=== PATIENT | male | born 1955 | race Caucasian/White ===

== ENCOUNTER 2023-02-06 19:34 | Outpatient (REF) | payer OTHER, SELFPAY ==
[2023-02-06 15:23] LABS: ALT 15 U/L (16-63); AST 20 U/L (15-37); Albumin 3.6 g/dL (3.4-5.0); Alkaline Phosphatase 99 U/L (46-116); Bilirubin, Direct 0.1 mg/dL (0.0-0.2); Bilirubin, Total 0.3 mg/dL (0.2-1.0); Total Protein 7.1 g/dL (6.4-8.2)
[2023-02-15 09:59] LABS: Misc Referral (UVM) See Comments
== END 2023-02-06 19:35 | disposition home or self-care (01) ==
LOC: NCHCN 19:34
PROVIDERS: PCP Nurse Practitioner Family; Visit Provider Nurse Practitioner Family
DX: F31.9 Bipolar disorder, unspecified (principal); Z51.81 Encounter for therapeutic drug level monitoring; Z79.899 Other long term (current) drug therapy
CPT/HCPCS: 80076; 80164

== ENCOUNTER 2023-03-06 15:46 | Outpatient (REF) | payer OTHER, SELFPAY ==
[2023-03-06 12:40] LABS: ALT 22 U/L (16-63); AST 15 U/L (15-37); Albumin 3.6 g/dL (3.4-5.0); Alkaline Phosphatase 94 U/L (46-116); BUN 29 mg/dL (7-18); Bilirubin, Total 0.4 mg/dL (0.2-1.0); Calcium 9.6 mg/dL (8.5-10.1); Calculated LDL 152 mg/dL (<100); Chloride 106 mmol/L (98-107); Cholesterol 230 mg/dL (<200); Estimated GFR 35.68 (mL/min/1.73m2); Glucose 88 mg/dL (74-106); HDL Cholesterol 43 mg/dL (40-60); Potassium 5.5 mmol/L (3.5-5.1); Sodium 140 mmol/L (136-145); Total Protein 7.3 g/dL (6.4-8.2); Triglyceride 175 mg/dL (<150)
== END 2023-03-06 15:47 | disposition home or self-care (01) ==
LOC: NCHCN 15:46
PROVIDERS: PCP Nurse Practitioner Family; Visit Provider Nurse Practitioner Family
DX: Z51.81 Encounter for therapeutic drug level monitoring (principal)
CPT/HCPCS: 80053; 80061

== ENCOUNTER 2023-03-11 07:39 | Outpatient (REF) | payer OTHER, SELFPAY ==
[2023-03-11 08:39] LABS: BUN 32 mg/dL (7-18); CREATININE 2.1 mg/dL (0.70-1.30); Chloride 108 mmol/L (98-107); Estimated GFR 33.66 (mL/min/1.73m2); Glucose 95 mg/dL (74-106); Sodium 141 mmol/L (136-145)
== END 2023-03-11 07:40 | disposition home or self-care (01) ==
LOC: LBN 07:39
PROVIDERS: PCP Nurse Practitioner Family; Visit Provider Nurse Practitioner Family
DX: E87.5 Hyperkalemia (principal)
CPT/HCPCS: 80048

== ENCOUNTER 2023-04-11 12:31 | Outpatient (REF) | payer OTHER, SELFPAY ==
[2023-04-11 13:38] LABS: Bilirubin Negative (Negative); Blood Negative (Negative); Clarity Clear (Clear); Glucose Negative (Negative); Ketones Negative (Negative); Leukocyte Esterase Negative (Negative); Nitrite Negative (Negative); Urobilinogen 0.2 mg/dL (Up to 0.2); pH 5.5 (5-8)
== END 2023-04-11 12:32 | disposition home or self-care (01) ==
LOC: NCHCN 12:31
PROVIDERS: PCP Nurse Practitioner Family; Visit Provider Nurse Practitioner Family
DX: N39.0 Urinary tract infection, site not specified (principal)
CPT/HCPCS: 81003

== ENCOUNTER 2023-04-16 18:11 | Outpatient (REF) | payer OTHER, SELFPAY ==
[2023-04-16 17:34] LABS: Influenza A PCR Negative (Negative); Influenza B PCR Negative (Negative); RSV PCR Negative (Negative)
[2023-04-16 17:35] LABS: Source Nasopharynx
[2023-04-16 17:39] LABS: COVID-19 PCR Positive (Negative)
== END 2023-04-16 18:12 | disposition home or self-care (01) ==
LOC: NCHCN 18:11
PROVIDERS: PCP Nurse Practitioner Family; Visit Provider Nurse Practitioner Family
DX: U07.1 COVID-19 (principal); Z11.59 Encounter for screening for other viral diseases
CPT/HCPCS: 87637

== ENCOUNTER 2023-05-02 16:36 | Outpatient (REF) | payer OTHER, SELFPAY ==
[2023-05-02 16:49] LABS: ALT 30 U/L (16-63); AST 22 U/L (15-37); Albumin 3.5 g/dL (3.4-5.0); Alkaline Phosphatase 123 U/L (46-116); Anion Gap 10.7 mmol/L (3-11); BUN 29 mg/dL (7-18); Bilirubin, Total 0.2 mg/dL (0.2-1.0); CO2 26.3 mmol/L (21.0-32.0); CREATININE 1.9 mg/dL (0.70-1.30); Calcium 9.1 mg/dL (8.5-10.1); Chloride 105 mmol/L (98-107); Estimated GFR 37.95 (mL/min/1.73m2); Glucose 114 mg/dL (74-106); Potassium 4.9 mmol/L (3.5-5.1); Sodium 142 mmol/L (136-145); Total Protein 7.2 g/dL (6.4-8.2)
== END 2023-05-02 16:37 | disposition home or self-care (01) ==
LOC: NCHCN 16:36
PROVIDERS: PCP Nurse Practitioner Family; Visit Provider Nurse Practitioner Family
DX: R79.89 Other specified abnormal findings of blood chemistry (principal); Z51.81 Encounter for therapeutic drug level monitoring
CPT/HCPCS: 80053

== ENCOUNTER 2023-05-24 16:54 | Outpatient (REF) | payer MEDICARE, SELFPAY ==
[2023-05-24 16:04] LABS: ALT 33 U/L (16-63); AST 20 U/L (15-37); Albumin 3.3 g/dL (3.4-5.0); Alkaline Phosphatase 99 U/L (46-116); Anion Gap 12.1 mmol/L (3-11); BUN 30 mg/dL (7-18); Bilirubin, Total 0.2 mg/dL (0.2-1.0); CO2 22.9 mmol/L (21.0-32.0); CREATININE 2.1 mg/dL (0.70-1.30); Calcium 9.1 mg/dL (8.5-10.1); Calculated LDL 142 mg/dL (<100); Chloride 108 mmol/L (98-107); Cholesterol 236 mg/dL (<200); Estimated GFR 33.66 (mL/min/1.73m2); Glucose 124 mg/dL (74-106); HDL Cholesterol 39 mg/dL (40-60); Sodium 143 mmol/L (136-145); Total Protein 7.1 g/dL (6.4-8.2); Triglyceride 279 mg/dL (<150)
== END 2023-05-24 16:55 | disposition home or self-care (01) ==
LOC: NCHCN 16:54
PROVIDERS: PCP Nurse Practitioner Family; Visit Provider Nurse Practitioner Family
DX: I25.10 Atherosclerotic heart disease of native coronary artery without angina pectoris (principal)
CPT/HCPCS: 80053; 80061

== ENCOUNTER 2023-08-29 16:18 | Outpatient (REF) | payer MEDICARE, SELFPAY ==
[2023-08-29 18:57] LABS: ALT 25 U/L (16-63); AST 18 U/L (15-37); Albumin 3.4 g/dL (3.4-5.0); Alkaline Phosphatase 99 U/L (46-116); Anion Gap 11.6 mmol/L (3-11); BUN 23 mg/dL (7-18); Bilirubin, Direct 0.1 mg/dL (0.0-0.2); Bilirubin, Total 0.28 mg/dL (0.2-1.0); CO2 24.4 mmol/L (21.0-32.0); CREATININE 2.2 mg/dL (0.70-1.30); Calcium 9.3 mg/dL (8.5-10.1); Chloride 104 mmol/L (98-107); Estimated GFR 31.83 (mL/min/1.73m2); Glucose 87 mg/dL (74-106); PHOSPHORUS 3.9 mg/dL (2.6-4.7); Potassium 4.9 mmol/L (3.5-5.1); Sodium 140 mmol/L (136-145); Total Protein 7.2 g/dL (6.4-8.2)
[2023-08-29 19:41] LABS: Calculated LDL 162 mg/dL (<100); Cholesterol 254 mg/dL (<200); HDL Cholesterol 41 mg/dL (40-60); Triglyceride 259 mg/dL (<150); Vitamin D 25 Total 42.3 ng/mL (30-100)
[2023-08-31 10:05] LABS: Parathyroid Hormone,Intact 150 pg/mL (19-88)
== END 2023-08-29 16:19 | disposition home or self-care (01) ==
LOC: NCHCN 16:18
PROVIDERS: PCP Nurse Practitioner Family; Visit Provider Nurse Practitioner Family
DX: I25.10 Atherosclerotic heart disease of native coronary artery without angina pectoris (principal); E21.1 Secondary hyperparathyroidism, not elsewhere classified; F31.9 Bipolar disorder, unspecified; Z51.81 Encounter for therapeutic drug level monitoring
CPT/HCPCS: 80053; 80061; 80076; 82306; 80164; 83970; 84100

== ENCOUNTER 2023-09-09 13:03 | Outpatient (REF) | payer MEDICARE, SELFPAY ==
--- OUTSIDE RECORDS SUMMARY | 2023-09-09 13:06 | XMS_ITS | Encounter Summary ---
Author Organization [facility] Address [address] [place] [address] Care Team Providers Care Administrative Executive Name Role Phone Unknown, Provider Primary Care Provider [phone] Encounter Details Date Type Department Care Team (Late st Contact Info) Description 02/07/2023 Lab Requisition [facility] Pathology & Laboratory Medicine - [facility] [address] [place] [address] Outr Resulting Lab, Provider Social History Tobacco Use Types Packs/Day Years Used Date Smoking Tobacco: Never Assessed Sex and Gender Information Value Date Recorded Sex Assigned at Not on file Gender Identity Not on file Sexual Orientation Not on file documented as of this encounter Plan of Treatment Not on file documented as of this encounter Procedures Procedure Name Priority Date/Time Associated Diagnosis Comments VALPROIC ACID LEVEL Routine 02/06/2023 1 4:10 EST documented in this encounter Results * (ABNORMAL) VALPROIC ACID LEVEL (02/06/2023 14:10 EST) Valproic Acid 31(L) 50 - 100 ug/mL 02/07/2023 17:02 EST [facility] Blood VENOUS BLOOD / Unknown 02/06/2023 14:10 EST 02/07/2023 16:44 EST Provider Outr Resulting Lab CHEMISTRY & BLOOD GAS ORDERABLES [facility] [address] [place] [address] documented in this encounter Visit Diagnoses Not on filedocumented in this encounter Care Teams Administrative Executive Relationship Specialty Start Date End Date Unknown, ProviderMD PCP - General 08/20/23 documented as of this encounter
--- OUTSIDE RECORDS SUMMARY | 2023-09-09 13:06 | XMS_ITS | Referral Summary ---
Author Organization [facility] Address [address] [place] [address] Care Team Providers Care Nurse'S Companion Name Role Phone Unknown, Provider Primary Care Provider Encounters Date Type Department Care Team Description 09/05/2023 Lab Requisition [facility] Pathology & Laboratory [address] [address] Tristen Marrero DO Neoplasm of unspecified behavior of bone, soft tissue, and skin 08/30/2023 Lab Requisition [facility] Pathology & Laboratory [address] [address] Outr Resulting Lab, Provider from Last 3 Months Social History Tobacco Use Types Packs/Day Years Used Date Smoking Tobacco: Never Assessed Sex and Gender Information Value Date Recorded Sex Assigned at Not on file Gender Identity Not on file Sexual Orientation Not on file Plan of Treatment Not on file Procedures Procedure Name Priority Date/Time Associated Diagnosis Comments SURGICAL PATHOLOGY Today 09/04/2023 11 :00 EDT Neoplasm of unspecified behavior of bone, soft tissue, and skin PTH INTACT Routine 08/29/2023 14:30 EDT from Last 3 Months Results * SURGICAL PATHOLOGY (09/04/2023 11:00 EDT) Note to Patient The following pathology results have been interpreted by your pathologist and may be available to you before your health provider has had the opportunity to review them. Please allow time for your provider to receive these results and explore management options, if applicable. 09/06/2023 14:21 EDT [facility] Final Diagnosis A. SKIN OF PRE-AURICULAR, LEFT, SHAVE BIOPSY: - Seborrheic keratosis, irritated. B. SKIN OF BACK, LEFT MID, SHAVE BIOPSY: - Seborrheic keratosis, pigmented. 09/06/2023 14:21 [facility] Attestation By the signature below, the attending physician certifies that they have 1) personally conducted a gross and/or microscopic examination of the described specimen(s), and/or personally interpreted the results of laboratory testing of the described specimen(s), and 2) personally rendered or confirmed the above diagnosis. 09/06/2023 14:21 [facility] at 1420 Clinical History Abnormal skin growth; clinical diagnosis code: D49.2 09/06/2023 14:21 [facility] Gross Description A. Received in formalin labelled with proper patient identification (initials O, E) and left preauricular is a shave biopsy of white slightly brown speckled verrucous skin (0.5 x 0.5 x 0.1 cm). The margin is inked blue and the specimen is submitted intact in A1. B. Received in formalin labelled with proper patient identification (initials O, E) and left mid back is a shave biopsy of white skin (0.8 x 0.7 x 0.1 cm). The skin surface displays an irregular contreras focally brown papule (0.5 x 0.3 cm). The margin is inked blue. The specimen is bisected and entirely submitted in B1. Yari Alfa 09/06/2023 6:31 09/06/2023 14:21 [facility] Performing Lab [facility] 09/06/2023 14:21 [facility] Scanned Images 09/06/2023 14:21 [facility] Tissue SPECIMEN FROM SKIN / Unknown 09/04/2023 11:00 EDT 09/05/2023 17:28 EDT Tissue specimen (specimen) SPECIMEN FROM SKIN / Unknown 09/04/2023 11:00 EDT 09/05/2023 17:28 EDT Tristen Marrero DO PATHOLOGY ORDER [facility] [address] [place] [address] * (ABNORMAL) PTH INTACT (08/29/2023 14:30 EDT) Intact PTH 150(H) 19 - 88 pg/mL 08/31/2023 10:00 EDT [facility] Blood VENOUS BLOOD / Unknown 08/29/2023 14:30 EDT 08/30/2023 22:16 EDT Provider Outr Resulting Lab CHEMISTRY & BLOOD GAS ORDERABLES [facility] [address] [place] [address] from Last 3 Months Care Teams Nurse'S Companion Relationship Specialty Start Date End Date Unknown, Provider, PCP - General 08/20/23
--- OUTSIDE RECORDS SUMMARY | 2023-09-09 13:06 | XMS_ITS | Encounter Summary ---
Author Organization [facility] Address [address] [place] [address] Care Team Providers Care Lining Baster Name Role Phone Unknown, Provider Primary Care Provider Encounter Details Date Type Department Care Team (Late st Contact Info) Description 08/30/2023 Lab Requisition [facility] Pathology & Laboratory Medicine - [facility] [address] [place], [place] [address] Outr Resulting Lab, Provider Social History Tobacco [...] Procedure Name Priority Date/Time Associated Diagnosis Comments PTH INTACT Routine 08/29/2023 14:30 EDT documented in this encounter Results * (ABNORMAL) PTH INTACT (08/29/2023 14:30 EDT) Intact PTH 150(H) 19 - 88 pg/mL 08/31/2023 10:00 EDT [facility] Blood VENOUS BLOOD / Unknown 08/29/2023 14:30 EDT 08/30/2023 22:16 EDT Provider Outr Resulting Lab CHEMISTRY & BLOOD GAS ORDERABLES [facility] [address] [place] [address] documented in this encounter Visit Diagnoses Not on filedocumented in this encounter Care Teams Lining Baster Relationship Specialty Start Date End Date Unknown, Provider, PCP - General 08/20/23 documented as of this encounter
--- OUTSIDE RECORDS SUMMARY | 2023-09-09 13:06 | XMS_ITS | Clinical Summary ---
Author Organization [facility] Address [address] [place] [address] Care Team Providers Care Video Technician Name Role Phone Unknown, Provider Primary Care Provider Encounters Date Type Department Care Team Description 09/05/2023 Lab Requisition [facility] Pathology & Laboratory [address] [address] Tristen Marrero DO Neoplasm of unspecified behavior of bone, soft tissue, and skin 08/30/2023 Lab Requisition [facility] Pathology & Laboratory [address] [address] Outr Resulting Lab, Provider from Last 3 Months Social History Tobacco Use Types Packs/Day Years Used Date Smoking Tobacco: Never Assessed Sex and Gender Information Value Date Recorded Sex Assigned at Not on file Gender Identity Not on file Sexual Orientation Not on file Plan of Treatment Health Maintenance Due Date Last Done Comments Hepatitis C Screen 1955 RSV Immunization ( o r 60+ Years) (1 - 1-dose 60+ series) 2014 Fall Risk Screening 10/30/2019 COVID-19 Vaccine ( season) 2022 Procedures Procedure Name Priority Date/Time Associated Diagnosis [...] explore management options, if applicable. 09/06/2023 14:21 [facility] Final Diagnosis A. SKIN OF PRE-AURICULAR, LEFT, SHAVE BIOPSY: - Seborrheic keratosis, irritated. B. SKIN OF BACK, LEFT MID, SHAVE BIOPSY: - Seborrheic keratosis, pigmented. 09/06/2023 14:21 [facility] Attestation By the signature below, the attending physician certifies that they have 1) personally conducted a gross and/or microscopic examination of the described specimen(s), and/or personally interpreted the results of laboratory testing of the described specimen(s), and 2) personally rendered or confirmed the above diagnosis. 09/06/2023 14:21 [facility] at 1420 Clinical History Abnormal skin growth; clinical diagnosis code: D49.2 09/06/2023 14:21 [facility] Gross Description A. Received in [...] bisected and entirely submitted in B1. Yari Grimm 09/06/2023 6:31 09/06/2023 14:21 [facility] Performing Lab [facility] 09/06/2023 14:21 [facility] Scanned Images 09/06/2023 14:21 [facility] Tissue SPECIMEN FROM SKIN / Unknown 09/04/2023 11:00 EDT 09/05/2023 17:28 EDT Tissue specimen (specimen) SPECIMEN FROM SKIN / Unknown 09/04/2023 11:00 EDT 09/05/2023 17:28 EDT Tristen Marrero DO PATHOLOGY ORDER [facility] Performing Organization Address City/[facility]/ZIP Co de Phone Number [facility] [address] [place], [place] [address] * (ABNORMAL) PTH INTACT (08/29/2023 14:30 EDT) Intact PTH 150(H) 19 - 88 pg/mL 08/31/2023 10:00 EDT [facility] Blood VENOUS BLOOD / Unknown 08/29/2023 14:30 EDT 08/30/2023 22:16 EDT Provider Outr Resulting Lab CHEMISTRY & BLOOD GAS ORDERABLES Performing Organization Address City/[facility]/ZIP Co de Phone Number [facility] [address] [place] [address] from Last 3 Months Care Teams Video Technician Relationship Specialty Start Date End Date Unknown, Provider, PCP - General 08/20/23
--- OUTSIDE RECORDS SUMMARY | 2023-09-09 13:06 | XMS_ITS | Continuity of Care Document ---
Author Organization [facility] Address [address] [place] [address] Care Team Providers Care Design Director Name Role Phone MIAH LÓPEZ APRN Primary Care Physician [phone] Encounter [facility] NBR [id number] Date(s): 06/06/23 - 06/06/23 [facility] Amb[facility] [address] [place] [address]- us Assessment and Plan Future Appointments Patient Care team information Care Team Personnel Name: MIAH LÓPEZ APRN Position: No Access Member Role: Primary Care Physician Address: Address: [address] [place] [phone]
--- OUTSIDE RECORDS SUMMARY | 2023-09-09 13:06 | XMS_ITS | Encounter Summary ---
Author Organization [facility] Address [address] [place] [address] Care Team Providers Care Central Office Associate Name Role Phone Unknown, Provider Primary Care Provider Encounter Details Date Type Department Care Team (Late st Contact Info) Description 09/05/2023 Lab Requisition [facility] Pathology & Laboratory Medicine - [address] [id number] Tristen Marrero, [address] [place], [place] [id number] Neoplasm of unspecified behavior of bone, soft tissue, and skin Social History Tobacco Use Types Packs/Day Years [...] behavior of bone, soft tissue, and skin documented in this encounter Results * SURGICAL PATHOLOGY (09/04/2023 11:00 EDT) Note to Patient The following pathology results have been interpreted by your pathologist and may be available to you before your health provider has had the opportunity to review them. Please allow time for your provider to receive these results and explore management options, if applicable. 09/06/2023 14:21 EDT [facility] Final Diagnosis A. SKIN OF PRE-AURICULAR, LEFT, SHAVE BIOPSY: - Seborrheic keratosis, irritated. B. SKIN OF BACK, LEFT MID, SHAVE BIOPSY: - Seborrheic keratosis, pigmented. 09/06/2023 14:21 [facility] Attestation By the signature below, the attending physician certifies that they have 1) personally conducted a gross and/or microscopic examination of the described specimen(s), and/or personally interpreted the results of laboratory testing of the described specimen(s), and 2) personally rendered or confirmed the above diagnosis. 09/06/2023 14:21 [facility] at 1420 Clinical History Abnormal skin growth; clinical diagnosis code: D49.2 09/06/2023 14:21 [facility] Gross Description A. Received in [...] B1. Yari Grimm 09/06/2023 6:31 09/06/2023 14:21 T [facility] Performing Lab [facility] 09/06/2023 14:21 T [facility] Scanned Images 09/06/2023 14:21 T [facility] Tissue SPECIMEN FROM SKIN / Unknown 09/04/2023 11:00 EDT 09/05/2023 17:28 EDT Tissue specimen (specimen) SPECIMEN FROM SKIN / Unknown 09/04/2023 11:00 EDT 09/05/2023 17:28 EDT Tristen Marrero DO PATHOLOGY ORDER H[facility]ILTON [facility] [address] [place] [address] documented in this encounter Visit Diagnoses Diagnosis Neoplasm of unspecified behavior of bone, soft tissue, and skin documented in this encounter Care Teams Central Office Associate Relationship Specialty Start Date End Date Unknown, Provider, PCP - General 08/20/23 documented as of this encounter
== END 2023-09-09 13:04 | disposition home or self-care (01) ==
LOC: LBN 13:03
PROVIDERS: PCP Nurse Practitioner Family; Visit Provider Nurse Practitioner Family
DX: F31.9 Bipolar disorder, unspecified (principal); Z51.81 Encounter for therapeutic drug level monitoring; Z79.899 Other long term (current) drug therapy
CPT/HCPCS: 80164

== ENCOUNTER 2023-10-02 22:01 | Outpatient (REF) | payer MEDICARE, SELFPAY ==
[2023-10-02 17:35] LABS: Iron 85 ug/dL (65-175); Total Iron Binding Capacity 362 ug/dL (250-450); Transferrin Sat 23 % (20-55)
[2023-10-02 18:19] LABS: Ferritin 59 ng/mL (26-388)
[2023-10-04 09:42] LABS: Transferrin 263 mg/dL (201-352)
== END 2023-10-02 22:02 | disposition home or self-care (01) ==
LOC: NCHCN 22:01
PROVIDERS: PCP Nurse Practitioner Family; Visit Provider Nurse Practitioner Family
DX: E21.1 Secondary hyperparathyroidism, not elsewhere classified (principal)
CPT/HCPCS: 82728; 83540; 83550; 84466

== ENCOUNTER 2023-11-21 15:10 | Outpatient (REF) | payer MEDICARE, SELFPAY ==
[2023-11-21 14:25] LABS: ALT 28 U/L (16-63); AST 21 U/L (15-37); Albumin 3.7 g/dL (3.4-5.0); Alkaline Phosphatase 84 U/L (46-116); Anion Gap 7.6 mmol/L (3-11); BUN 40 mg/dL (7-18); Bilirubin, Total 0.47 mg/dL (0.2-1.0); CO2 28.4 mmol/L (21.0-32.0); CREATININE 2.5 mg/dL (0.70-1.30); Calcium 9.9 mg/dL (8.5-10.1); Calculated LDL 151 mg/dL (<100); Chloride 105 mmol/L (98-107); Cholesterol 234 mg/dL (<200); Estimated GFR 27.13 (mL/min/1.73m2); Glucose 81 mg/dL (74-106); HDL Cholesterol 49 mg/dL (40-60); Magnesium 2.1 mg/dL (1.8-2.4); Potassium 5.2 mmol/L (3.5-5.1); Sodium 141 mmol/L (136-145); Total Protein 7.3 g/dL (6.4-8.2); Triglyceride 170 mg/dL (<150); Vitamin B12 923 pg/mL (193-986)
[2023-11-21 14:34] LABS: Bilirubin, Direct 0.1 mg/dL (0.0-0.2)
[2023-11-22 11:25] LABS: PSA, Diagnostic 6.8 ng/mL (<=4.5)
== END 2023-11-21 15:11 | disposition home or self-care (01) ==
LOC: NCHCN 15:10
PROVIDERS: PCP Nurse Practitioner Family; Visit Provider Nurse Practitioner Family
DX: N40.1 Benign prostatic hyperplasia with lower urinary tract symptoms (principal); F31.9 Bipolar disorder, unspecified
CPT/HCPCS: 80053; 80061; 80076; 80164; 82607; 83735; 84153; 84443

== ENCOUNTER 2023-12-06 08:02 | Outpatient (CLI) | payer MEDICARE, SELFPAY ==
--- NOTE | 2023-12-06 08:00 | RT.EKG_ITS ---
APPROVED REPORT Exam: Resting ECG Reason for Exam: cad Patient Location: O HR:124 bpm ECG Measurements Heart Rate 124 AXIS WI 140 P 41 QRSd 121 QRS 30 QT 308 T 19 QTc 443 Conclusion Sinus tachycardia...rate> 99 Probable left atrial enlargement...P >50mS, <-0.10mV V1 Right bundle branch block...QRSd>120, terminal axis(90,270) Artifact in lead(s) I,II,III,aVR,aVL,aVF and baseline wander in lead(s) V2
== END 2023-12-06 08:03 | disposition home or self-care (01) ==
LOC: DI.CARD 08:15
PROVIDERS: PCP Nurse Practitioner Family; Visit Provider Internal Medicine Cardiovascular Disease
DX: I25.10 Atherosclerotic heart disease of native coronary artery without angina pectoris (principal)
CPT/HCPCS: 93010

== ENCOUNTER → 2023-12-06 11:02 | Outpatient (BNVA) | payer MEDICARE, SELFPAY | PROVIDERS: PCP Nurse Practitioner Family; Referring Provider Nurse Practitioner Family; Visit Provider Internal Medicine Cardiovascular Disease | DX: R07.9 Chest pain, unspecified (principal); I71.21 Aneurysm of the ascending aorta, without rupture; I25.10 Atherosclerotic heart disease of native coronary artery without angina pectoris | CPT/HCPCS: 93005; 99204 ==

== ENCOUNTER 2023-12-20 10:45 | Emergency (ER) | payer MEDICARE, SELFPAY ==
[2023-12-20] VITALS (33 sets, daily range): BP systolic 87–177; BP diastolic 46–97; PULSE 92–123; RESP 3–32; TEMP 36.9; O2SAT 91–97
--- NOTE | 2023-12-20 10:45 | RT.EKG_ITS ---
APPROVED REPORT Exam: Resting ECG Reason for Exam: tachycardia Patient Location: E HR:124 bpm ECG Measurements Heart Rate [address] 138 P 57 QRSd 118 QRS 35 QT 317 T 27 QTc 456 Conclusion Sinus tachycardia...rate> 99 Right bundle branch block...QRSd>120, terminal axis(90,270)
--- NOTE | 2023-12-20 10:59 | ED.GENADUL_ITS ---
Discharge Plan Disposition Patient Disposition: Home Condition: Stable Discharge Details Clinical Impression: COVID, COPD exacerbation Primary Care Provider: Stephanie Wang ED Provider: Luan Gonzalez Home Meds and New Rx's Prescriptions: New prednisone 20 mg tablet 60 mg PO DAILY 4 Days Qty: 12 0RF Continued apixaban 2.5 mg tablet 2.5 mg PO BID albuterol sulfate 90 mcg/actuation HFA aerosol inhaler 2 puff inhalation Q4H PRN calcitriol 0.25 mcg capsule 0.25 mcg PO .MWF divalproex 500 mg tablet extended release 24 hr 1,000 mg PO QHS multivitamin Tablet 1 tab PO DAILY tamsulosin 0.4 mg capsule 0.8 mg PO DAILY mirtazapine 30 mg tablet 15 mg PO QHS docusate sodium [Colace] 100 mg capsule 100 mg PO BID Spiriva Respimat 1.25 mcg/actuation mist 2 puff inhalation QAM acetaminophen [Tylenol] 325 mg tablet 650 mg PO BID PRN fluoxetine 10 mg capsule 10 mg PO DAILY olanzapine 5 mg tablet 5 mg PO QHS Discharge Instructions Additional Instructions: You are positive for COVID which is likely causing your symptoms. He also likely have a component of a COPD or emphysema exacerbation. You have too many medication interactions with your current medications to be on Paxlovid. Follow-up with your primary care provider within 1 to 2 weeks If you feel more ill or have new symptoms such as persistent vomiting or severe worsening shortness of breath return to the emergency department for reevaluation. HPI General Mode of arrival: ambulatory . Date/Time Provider Initiated Documentation: 12/20/23 10:47 . Limitations to Documentation: no limitations . Information obtained by: patient . History of Present Illness 68 year old M presents to the emergency department with the chief complaint of chest pain, described as moderate, Quality is described as aching, and is localized to the chest. Patient reports no radiation. Patient started experiencing this month(s) (4) and it has been constant. No relieving factors improve symptom(s), No exacerbating factors reported . Patient notes no other symptoms.. Patient did receive the following treatments prior to arrival, none Related Data Home Medications ?Medication ?Instructions ?Recorded ?Confirmed albuterol sulfate 90 mcg/actuation 2 puff inhalation Q4H PRN 10/03/22 12/20/23 aerosol inhaler apixaban 2.5 mg tablet 2.5 mg PO BID 10/03/22 12/20/23 calcitriol 0.25 mcg capsule 0.25 mcg PO .MWF 10/03/22 12/20/23 divalproex 500 mg tablet,extended 1,000 mg PO QHS 10/03/22 12/20/23 release 24 hr mirtazapine 30 mg tablet 15 mg PO QHS 10/03/22 12/20/23 multivitamin 1 tab PO DAILY 10/03/22 12/20/23 tamsulosin 0.4 mg capsule 0.8 mg PO DAILY 10/03/22 12/20/23 docusate sodium 100 mg capsule 100 mg PO BID 10/04/22 12/20/23 (Colace) acetaminophen 325 mg tablet 650 mg PO BID PRN 04/30/23 12/20/23 (Tylenol) tiotropium bromide 1.25 2 puff inhalation QAM 12/06/23 12/20/23 mcg/actuation mist for inhalation (Spiriva Respimat) fluoxetine 10 mg capsule 10 mg PO DAILY 12/20/23 12/20/23 olanzapine 5 mg tablet 5 mg PO QHS 12/20/23 12/20/23 prednisone 20 mg tablet 60 mg (3 x 20 mg) PO DAILY 4 days 12/20/23 #12 tabs Previous Rx's ?Medication ?Instructions ?Recorded prednisone 20 mg tablet 60 mg (3 x 20 mg) PO DAILY 4 days 12/20/23 #12 tabs Allergies Allergy/AdvReac Type Severity Reaction Status Date / Time No Known Allergies Allergy Verified 12/20/23 10:52 General Stated Complaint: RespSymp TORRIE: 3 Review of Systems All systems reviewed & are unremarkable except as noted in HPI and below Constitutional Constitutional: Denies chills, Denies fever(s) and Denies weakness Cardiovascular Cardiovascular: Reports chest pain and Reports dyspnea Respiratory Respiratory: Denies cough and Reports dyspnea Gastrointestinal Gastrointestinal: Denies abdominal pain, Denies nausea and Denies vomiting Integumentary/Breasts Skin/Breast: Denies rash Neurologic Neurologic: Denies weakness Exam Const General: no acute distress Orientation: alert HENKS Head: normal to inspection Ears: external ears normal General nose exam: external nose normal Mouth: mucous membranes dry Eyes General: appearance normal, both eyes and all related structures Neck Neck: normal visual inspection Resp Effort & Inspection: normal respiratory effort and able to speak in complete sentences Auscultation: rhonchi and wheezes Cardio Jugular venous pressure: no JVD Rate: regular rate Heart Sounds: no murmurs GI Palpation: soft and nontender Skin General skin exam: no rashes or lesions noted Neuro General: patient alert and patient oriented x3 Extrem General: normal to inspection Psych Mental Status: mental status grossly normal Course Vital Signs Vital signs: Vital Signs Temperature 36.9 C 12/20/23 10:48 Pulse 123 H 12/20/23 10:48 Respiratory Rate 18 12/20/23 10:48 Blood Pressure 87/46 L 12/20/23 10:48 Pulse Oximetry 97 12/20/23 10:48 Temperature 36.9 C 12/20/23 10:52 Temperature Source Temporal Artery Scan 12/20/23 10:52 Pulse 123 H 12/20/23 10:52 Respiratory Rate 18 12/20/23 10:52 Blood Pressure 87/46 L 12/20/23 10:52 Blood Pressure Position Sitting 12/20/23 10:52 Pulse Oximetry 97 12/20/23 10:52 Oxygen Delivery Method Room Air 12/20/23 10:52 Oxygen Flow Rate 0 12/20/23 10:52 Medical Decision Making 68-year-old male with a history of bipolar disorder who states he has had 4 months of shortness of breath and chest pain in the last few days has had a cough. He denies any fevers, abdominal pain, vomiting, diaphoresis. The pain in his chest is an aching pain in description and is not radiating. He is spea lio clearly on exam, he does have wheezing at the apices bilaterally with rhonchi at the bases bilaterally. No JVD, no leg swelling or calf tenderness. I suspect that his symptoms could be due to COPD exacerbation which I will treat with a DuoNeb and Solu-Medrol. Will also check a CBC CMP and troponins. He has a history of PE for which he is on Eliquis for so doubt PE at this time, he has no evidence of DVT on exam. No tearing back pain and equal peripheral pulses so doubt dissection. Initial heart rate was over 120 and BP was less than 90 systolic, on my assessment blood pressure is 125/83 but is still tachycardic and has been Membranes do appear dry so we will treat with IV fluids and reassess. Patient currently asymptomatic and feels much better after neb. Lung sounds significantly improved. Heart rate 90 oxygen on room air is 95%. He is COVID- positive. First Trope elevated at 277. He still has no chest pain, suspect this could be elevated due to COVID and possibly due to his likely COPD exacerbation. Will obtain delta troponin.Xray unremarkable Delta troponin lowered to 67, he is sleeping on reassessment awakens easily to voice. He is still has no chest pain or difficulty breathing stable vital signs. He is on Eliquis which interacts with Paxlovid, feel he is too high risk to stop the Eliquis so will defer Paxlovid for now. Feel he can be discharged for follow-up with cardiology and his PCP. Return precautions given. Differential Diagnosis Differential Diagnosis: copd, pneumonia, covid, acs ECG Data Attestation: I personally reviewed and interpreted this ECG (s) as follows: Prior ECG tracings: available for review Interpretation: sinus tachycardia, rate of 124, pr 138, rbbb, no stemi Quality:SDOH Health Related Social Needs: No Data to Display PFSH All Active Problems (Updated 12/20/23 @ 13:45 by Luan Gonzalez MD) COPD exacerbation (Acute) COVID (Acute) Chronic constipation (Acute) Fatigue (Acute) Hypertensive disorder (Chronic) Lower urinary tract symptoms (LUTS) (Acute) Bipolar 1 disorder (Acute) Advanced care planning/counseling discussion (Acute) Medical History Intermittent claudication Pulmonary embolism Benign prostatic hyperplasia with urinary frequency Deep venous thrombosis Bipolar disorder History of attempted suicide [place] Cocaine dependence in remission Actinic keratosis GERD (gastroesophageal reflux disease) Benign prostatic hyperplasia Rodriguez's esophagus ADHD Depressive disorder Osteoarthritis Aneurysm of thoracic aorta Stimulant abuse Multiple nodules of lung PTSD (post-traumatic stress disorder) Hip pain Coronary arteriosclerosis Polyp of colon Chronic kidney disease Marijuana use Pulmonary emphysema 51 pack year Quit smoking 2007 Ankylosing spondylitis Palliative care encounter CAD (coronary artery disease) COPD (chronic obstructive pulmonary disease) Cognitive changes Social History Smoking risk assessment performed?: No Housing: assisted living facility
[2023-12-20 11:36] LABS: BE (Venous) 0 mmol/L (-2-3); HCO3 (Venous) 26 mmol/L (23-28); O2 Sat (Venous) 44 %; TCO2 (Venous) 24 mmol/L (24-29); pCO2 (Venous) 47 mmHg (41-51); pH (Venous) 7.34 (7.31-7.41); pO2 (Venous) 27 mmHg
[2023-12-20 11:37] LABS: Abs Immature Grans 0.02 10^3/uL (0.0-0.06); Absolute Basophil Count 0.03 10^3/uL (0.0-0.2); Absolute Eosinophil Count 0.27 10^3/uL (0.0-0.7); Absolute Lymphocyte Count 1.65 10^3/uL (1.2-3.4); Absolute Monocyte Count 0.55 10^3/uL (0.1-0.8); Absolute Neutrophil Count 3.34 10^3/uL (1.2-6.7); Basophils % 0.5 %; Eosinophils % 4.6 %; HCT 44.7 % (40.0-50.0); HGB 14.4 g/dL (13.5-17.5); Immature Grans % 0.3 %; Lymphocytes % 28.2 %; MCH 29.9 pg (27.0-33.0); MCHC 32.2 % (32.0-36.0); MCV 93 fL (80-95); MPV 10.4 fL (8.0-11.0); Monocytes % 9.4 %; Platelet Count 196 10^3/uL (130-400); RBC 4.82 10^6/uL (4.36-5.78); RDW 14.8 % (11.8-14.1); RDW-SD 50.9 fL; WBC 5.86 10^3/uL (4.4-10.8)
[2023-12-20] MEDS: Albuterol/Ipratropium 3 ML UPD VIAL UPD (11:39)
[2023-12-20] MEDS: Normal Saline 1,000 ML 1000 ML IV (11:40)
[2023-12-20] MEDS: methylPREDNISolone SUCC 125 MG VIAL IVP (11:40)
[2023-12-20 11:43] LABS: Influenza A PCR Negative (Negative); Influenza B PCR Negative (Negative); RSV PCR Negative (Negative)
[2023-12-20 11:47] LABS: Source Nasopharynx
[2023-12-20 11:49] LABS: COVID-19 PCR Positive (Negative)
[2023-12-20 11:51] LABS: INR 1.1 (0.9-1.1); PTT Activated 27.8 sec (23.6-32.8); Prothrombin Time 11.2 sec (9.1-11.1)
--- NOTE | 2023-12-20 12:06 | DI.RAD_ITS ---
Exam(s) XR PORTABLE CHEST AP EXAM: XR PORTABLE CHEST AP CLINICAL HISTORY: dyspnea TECHNIQUE: 2D digital imaging was performed. COMPARISON: No exams were available for comparison FINDINGS: Overlying monitoring leads. LUNGS: Clear. No pleural abnormality seen. HEART: Normal size. AORTA: Normal diameter. BONES: Unremarkable for age. Soft tissues: Unremarkable. IMPRESSION: No acute findings. DATA REPOSITORY: RADIATION DOSE DELIVERED:
[2023-12-20 12:07] LABS: ALT 38 U/L (16-63); AST 34 U/L (15-37); Albumin 3.4 g/dL (3.4-5.0); Alkaline Phosphatase 79 U/L (46-116); Anion Gap 10.3 mmol/L (3-11); BUN 53 mg/dL (7-18); Bilirubin, Total 0.45 mg/dL (0.2-1.0); CO2 25.7 mmol/L (21.0-32.0); CREATININE 2.7 mg/dL (0.70-1.30); Calcium 10.1 mg/dL (8.5-10.1); Chloride 108 mmol/L (98-107); Estimated GFR 24.74 (mL/min/1.73m2); Glucose 98 mg/dL (74-106); Lipase 27 U/L (16-77); Magnesium 1.9 mg/dL (1.8-2.4); NT-proBNP 193 pg/mL (<300); Potassium 5.3 mmol/L (3.5-5.1); Sodium 144 mmol/L (136-145); TSH (W/Ref FT4) 1.37 uIU/mL (0.36-3.74); Total Protein 7.7 g/dL (6.4-8.2)
[2023-12-20 12:09] LABS: Troponin I 276 ng/L (<or=76)
[2023-12-20 12:11] LABS: VALPROIC ACID 80.1 ug/mL
[2023-12-20 13:34] LABS: Troponin I 266 ng/L (<or=76)
== END 2023-12-20 14:31 | disposition home or self-care (01) ==
PROVIDERS: Emergency Provider Emergency Medicine; PCP Nurse Practitioner Family
DX: U07.1 COVID-19 (principal); J44.1 Chronic obstructive pulmonary disease with (acute) exacerbation; I45.19 Other right bundle-branch block; I25.2 Old myocardial infarction; Z86.711 Personal history of pulmonary embolism; Z79.01 Long term (current) use of anticoagulants; Z79.899 Other long term (current) drug therapy
CPT/HCPCS: 80053; 82805; 83690; 87637; 93005; 94640; 96361; 96374; 99285; 71045; 80164; 83735; 83880; 84443; 84484; 85025; 85610; 85730; 93010; 99284; J2919; J7620

== ENCOUNTER 2024-01-21 01:31 | Outpatient (CLI) | payer MEDICARE, SELFPAY ==
--- NOTE | 2024-01-21 07:14 | DI.NM_ITS ---
APPROVED REPORT Exam: Pharmacologic Patient Location: Out-Patient Room/Bed: Stress Nurse: Leilani Watters RN Ordering Provider:JOSEPH NAGY, Contact Number: BMI: 23.24 Baseline Rhythm: Sinus Rhythm, RBBB Comment: T wave inversion in V2 Indications: atypical chest pain Medical History Medical History: COPD, recent covid infection (12/20/23), HTN, bipolar, PE, GERD, ADHD, depression, D VT, stimulant abuse, aneurysm of thoracic aorta, PTSD, coronary atherosclerosis, CKD, marijuana use, CAD, falls Cardiac Medications: albuterol sulfate, tiotropium bromide, colace, apixaban, calcitrol, divalproex, tamsulosin, fluoxetine, mirtazapine, olanzapine, amlodipine, methylphenidate, atorvastatin Allergies: NKA Cardiac Risk Factors: HTN, COPD, CVD Previous Cardiac Procedures: none Pretest Chest Pain Characteristics: 03/31 chest pressure Exercise History: Sedentary Physical Disabilities: dizziness Lung Sounds: Clear to auscultation Heart Sounds: Tachycardia Stress Test Details Test: Pharmacologic stress testing performed using 0.4 mg of regadenoson per 5 mL given IV over 10 s econds. Nuclear Acquisition: Rest Tc-99m/Stress Tc-99m 1 day Rest Isotope: Tc-99m Sestamibi. Dose: 10.0 Date: 01/21/2024 Injection Time: 0920 Stress Isotope: Tc-99m Sestamibi. Dose: 30.0 Date: 01/21/2024 Injection Time: 1120 HR Resting HR Supine: 100 bpm Max Heart Rate (APMHR): 151.453812 bpm Target HR (85% APMHR): 128.410078 bpm Max HR Achieved: 119 bpm % of APMHR: 78.81 Recovery HR: 109 bpm BP Resting BP Supine: 138/80 mmHg Max BP: 138/80 mmHg Recovery BP: 118/62 mmHg ECG Resting ECG: Sinus Tachycardia, RBBB Ectopy: none Stress ECG: Sinus Tachycardia, RBBB ST Change: Nondiagnostic low heart rate Arrhythmia: None Recovery ECG: Sinus Tachycardia, RBBB Recovery ST Change: Nondiagnostic low heart rate Recovery Arrhythmia: None Clinical Stress Symptoms: Chest pain, Dizziness Angina Score: Non-Limiting Rate Pressure Product: [id number] Stress ECG Conclusion 1. Resting electrocardiogram showed right bundle branch block 2. Patient underwent testing using pharmacologic stress with regadenoson 3. Peak heart rate achieved was 79% of maximal predicted for age 4. The electrocardiographic portion of the test was nondiagnostic Stress Test Summary STAGE HR BP SpO2 Symptoms NOTES Supine 100 138/80 92 2/10 chest pressure at baseline 1 min post Lexiscan injection 108 122/72 3 min post Lexiscan injection 113 128/52 98 4/10 CP, mild dizziness 6 min post Lexiscan injection 109 118/62 96 CP returned to basline, pt left in wheelchair in no acute distress MPI Conclusion Myocardial perfusion is normal. There is no ischemia or evidence of prior infarction Calculated EF is 88% with hyperdynamic LV function Radiologist Interpretation Radiologist agrees with Prestidigitator's Interpretation. Radiologist Interpretation by: Nidhi Crawford MD Interpretation Date/Time: 01/22/2024 15:31:55
[2024-01-21] MEDS: Regadenoson 0.4 MG/5 ML SYR IVP (11:20)
== END 2024-01-21 01:51 ==
PROVIDERS: PCP Nurse Practitioner Family; Visit Provider Internal Medicine Cardiovascular Disease
DX: I25.10 Atherosclerotic heart disease of native coronary artery without angina pectoris (principal)
CPT/HCPCS: 78452; 93016; 93018; 93017; J2785

== ENCOUNTER 2024-01-23 10:37 | Outpatient (REF) | payer MEDICARE, SELFPAY ==
[2024-01-23 12:13] LABS: Anion Gap 7.6 mmol/L (3-11); BUN 34 mg/dL (7-18); CO2 28.4 mmol/L (21.0-32.0); CREATININE 2.1 mg/dL (0.70-1.30); Calcium 9.4 mg/dL (8.5-10.1); Chloride 109 mmol/L (98-107); Estimated GFR 33.45 (mL/min/1.73m2); Glucose 87 mg/dL (74-106); Potassium 5.9 mmol/L (3.5-5.1); Sodium 145 mmol/L (136-145)
== END 2024-01-23 10:38 | disposition home or self-care (01) ==
LOC: NCHCN 10:37
PROVIDERS: PCP Nurse Practitioner Family; Visit Provider Nurse Practitioner Family
DX: I25.10 Atherosclerotic heart disease of native coronary artery without angina pectoris (principal)
CPT/HCPCS: 80048

== ENCOUNTER 2024-01-28 01:41 | Outpatient (CLI) | payer MEDICARE, SELFPAY ==
--- NOTE | 2024-01-28 09:30 | DI.US_ITS ---
APPROVED REPORT EXAM: Comprehensive 2D, Doppler, and color-flow Echocardiogram Patient Location: Out-Patient [employer] Developer: Rhea Plunkett RDCS (AE) Indications: History of dilated ascending aorta, thoracic aneurysm, CAD Other Information Study Quality: Fair. Technically limited study due to body habitus. Conclusion Normal left ventricular wall thickness and chamber size. Ejection fraction visually is 55 to 60%. N o segmental wall motion abnormalities are identified Normal right ventricular size and function Both atria are normal in size Aortic valve is sclerotic. There is no aortic stenosis or regurgitation Ascending aorta measures 3.74 cm Wall motion Left Ventricle Technically limited imaging. The overall left ventricular systolic function appears normal. Regional wall motion is not well visualized but grossly normal. There is no ventricular septal defect visualiz ed. LVEF is 53%. Right Ventricle Right ventricle is grossly normal in size. Right ventricular systolic function is grossly normal. Atria The left atrium size is normal. The right atrium size is normal. The interatrial septum is intact wit h no evidence for an atrial septal defect. Aortic Valve The Aortic valve is sclerotic. Aortic valve is trileaflet. There is no aortic valvular stenosis. No a ortic regurgitation is present. Mitral Valve The mitral valve is normal in structure. No evidence of mitral valve stenosis. Trace mitral regurgita tion. Tricuspid Valve The tricuspid valve is normal in structure. There is no tricuspid valve stenosis. Trace tricuspid reg urgitation. Unable to assess PA pressure. Pulmonic Valve The pulmonary valve is normal in structure. There is no pulmonic valvular stenosis. Trace pulmonic re gurgitation. Great Vessels The aortic root is normal in size. The ascending aorta is mildly dilated. Aortic arch is not well vis ualized. IVC is normal in size and collapses >50% with inspiration. Pericardium There is no pericardial effusion. 2D Dimensions Ao Root d 3.71 cm M: 3.1 - 3.7 Ao Asc Diam d 3.74 cm M: 2.6 - 3.4 M-Mode TAPSE 2.17 cm (M/F) >1.7 Auto EF LV EDV A4C 89.7 mL LV EDV A2C 71.8 mL LV EDV BP 80.5 mL LV ESV A4C 42.1 mL LV ESV A2C 33.9 mL LV ESV BP 37.8 mL LVEF(%) A4C 53.0 % LVEF(%) A2C 52.8 % LVEF(%) BP 53.0 % LV SV A4C 47.6 ml LV SV A2C 37.9 ml LV SV BP 42.6 ml LV CO A4C 4.4 L/min LV CO A2C 3.5 L/min LV CO BP 4.0 L/min HR A4C 92.51 BPM HR A2C 92.31 BPM LV EDV Index (BP) LA Volume LA Length A4C 3.4 cm LA Length A2C 3.6 cm LA Area A4C s 8.31 cm2 LA Area A2C s 10.99 cm2 LA Vol A4C A-L 17.04 mL LA Vol A2C A-L 28.33 mL LA Vol Biplane A-L 22.5 mL LA Vol/BSA A4C A-L LA Vol/BSA A2C A-L LA Vol/BSA BP A-L 11.8 mL/m2 LA Vol A4C MOD 15.6 mL LA Vol A2C MOD 26.7 mL LA Vol BP MOD 20.7 mL LV Diastology MV E' medial 0.063 (>0.07 m/s) MV E Vmax 0.71 (0.4-1.3 m/s) MV E/E' MED 11.24 (<14) MV A Vmax 1.15 (0.4-1.3 m/s) E/A Ratio 0.6 Aortic Valve AoV Vmax 1.17 m/s LVOT Vmax 1.17 m/s AoV Peak Grad 5.5 mmHg LVOT Peak Grad 5.5 mmHg AoV Area (Vmax) 3.22 cm2 LVOT VTI 0.225 m AoV VTI 0.221 m LVOT Mean Grad 3.6 mmHg AoV Mean Memo. 0.92 m/s LVOT SV 72.67 mL AoV Mean Grad 3.7 mmHg LVOT Diam s 2.00 cm AoV Area (VTI) 3.28 cm2 AV Regurg Peak Gr. 5.51 mmHg Velocity Ratio 1.00 Mitral Valve MV DT 261 (160-240 msec) MV Vmax TIPS 1.16 m/s MV Mean Grad 2.4 (<2mmHg) MV VTI 0.215 m Pulmonary Valve PV Vmax 0.90 (0.5-1.5 m/s) RVOT Vmax 0.89 m/s PV Peak Grad 3.3 mmHg RVOT Peak Gr. 3.2 mmHg PV Mean Memo 0.49 m/s RVOT VTI 0.131 m PV Mean Grad 1.3 mmHg RVOT Mean Gr. 1.9 mmHg Tricuspid Valve TV S' 0.15 m/s
== END 2024-01-28 02:01 ==
LOC: DI 01:41
PROVIDERS: PCP Nurse Practitioner Family; Visit Provider Internal Medicine Cardiovascular Disease
DX: I71.21 Aneurysm of the ascending aorta, without rupture (principal)
CPT/HCPCS: 93306

== ENCOUNTER 2024-02-05 08:16 | Outpatient (CLI) | payer MEDICARE, SELFPAY | END 2024-02-05 08:17 | disposition home or self-care (01) | LOC: DI.CARD 08:20 | PROVIDERS: PCP Nurse Practitioner Family; Visit Provider Internal Medicine Cardiovascular Disease | CPT/HCPCS: 93010 ==

== ENCOUNTER → 2024-02-05 13:29 | Outpatient (BNVA) | payer MEDICARE, SELFPAY | PROVIDERS: PCP Nurse Practitioner Family; Referring Provider Nurse Practitioner Family; Visit Provider Internal Medicine Cardiovascular Disease | DX: I25.10 Atherosclerotic heart disease of native coronary artery without angina pectoris (principal) | CPT/HCPCS: 99213 ==

== ENCOUNTER 2024-02-11 01:38 | Outpatient (CLI) | payer MEDICARE, SELFPAY ==
--- NOTE | 2024-02-11 | DI.US_ITS ---
Exam(s) US RENAL EXAM: US RENAL CLINICAL HISTORY: Stage IIIB CKD, N18.32; h/o BPH. TECHNIQUE: Boston scale, color and spectral Doppler were used. COMPARISON: No exams were available for comparison FINDINGS: Right kidney: 8.3cm Echogenicity: Normal Hydronephrosis: No Cyst or mass: 2 cysts, upper and lower pole. No suspicious mass. Nephrolithiasis: No Left kidney: 9.8cm Echogenicity: Normal Hydronephrosis: No Cyst or mass: No Nephrolithiasis: No Bladder:Normal. Prevoid vol:156 cc Postvoid vol:103 cc Prostate volume 55 cc, enlarged, impressing on the base of the bladder.. IMPRESSION: Large postvoid residual. Enlarged prostate. No evidence of hydronephrosis DATA REPOSITORY:
== END 2024-02-11 01:58 ==
LOC: DI 01:38
PROVIDERS: PCP Nurse Practitioner Family; Visit Provider Nurse Practitioner
DX: N18.32 Chronic kidney disease, stage 3b (principal)
CPT/HCPCS: 76770

== ENCOUNTER 2024-02-27 16:27 | Outpatient (REF) | payer MEDICARE, SELFPAY ==
[2024-02-27 16:57] LABS: ALT 18 U/L (16-63); AST 18 U/L (15-37); Albumin 3.4 g/dL (3.4-5.0); Alkaline Phosphatase 96 U/L (46-116); Anion Gap 7.4 mmol/L (3-11); BUN 37 mg/dL (7-18); Bilirubin, Direct 0.1 mg/dL (0.0-0.2); Bilirubin, Total 0.29 mg/dL (0.2-1.0); CO2 27.6 mmol/L (21.0-32.0); CREATININE 2.3 mg/dL (0.70-1.30); Calcium 9.6 mg/dL (8.5-10.1); Calculated LDL 95 mg/dL (<100); Chloride 108 mmol/L (98-107); Cholesterol 179 mg/dL (<200); Estimated GFR 29.99 (mL/min/1.73m2); Glucose 103 mg/dL (74-106); HDL Cholesterol 50 mg/dL (40-60); Potassium 5.7 mmol/L (3.5-5.1); Sodium 143 mmol/L (136-145); Total Protein 6.7 g/dL (6.4-8.2); Triglyceride 170 mg/dL (<150)
[2024-02-27 16:59] LABS: VALPROIC ACID 71.3 ug/mL
== END 2024-02-27 16:28 | disposition home or self-care (01) ==
LOC: NCHCN 16:27
PROVIDERS: PCP Nurse Practitioner Family; Visit Provider Nurse Practitioner Family
DX: F31.9 Bipolar disorder, unspecified (principal); Z79.899 Other long term (current) drug therapy
CPT/HCPCS: 80053; 80061; 80076; 80164

== ENCOUNTER 2024-03-28 19:31 | Outpatient (REF) | payer MEDICARE, SELFPAY ==
[2024-03-28 12:35] LABS: Anion Gap 5.9 mmol/L (3-11); BUN 31 mg/dL (7-18); CO2 26.1 mmol/L (21.0-32.0); CREATININE 2.1 mg/dL (0.70-1.30); Calcium 9.4 mg/dL (8.5-10.1); Chloride 107 mmol/L (98-107); Estimated GFR 33.45 (mL/min/1.73m2); Glucose 106 mg/dL (74-106); Sodium 139 mmol/L (136-145)
== END 2024-03-28 19:32 | disposition home or self-care (01) ==
LOC: LBN 19:31
PROVIDERS: PCP Nurse Practitioner Family; Visit Provider Nurse Practitioner Family
DX: E87.5 Hyperkalemia (principal)
CPT/HCPCS: 80048

== ENCOUNTER 2024-05-19 21:28 | Outpatient (REF) | payer MEDICARE, SELFPAY ==
[2024-05-19 19:40] LABS: Bilirubin Negative (Negative); Blood Negative (Negative); Clarity Clear (Clear); Glucose Negative (Negative); Ketones Negative (Negative); Leukocyte Esterase Negative (Negative); Nitrite Negative (Negative); Specific Gravity 1.015 (1.005-1.025); Urobilinogen 0.2 mg/dL (Up to 0.2); pH 5.5 (5-8)
== END 2024-05-19 21:29 | disposition home or self-care (01) ==
LOC: NCHCN 21:28
PROVIDERS: PCP Nurse Practitioner Family; Visit Provider Nurse Practitioner Family
DX: N40.1 Benign prostatic hyperplasia with lower urinary tract symptoms (principal)
CPT/HCPCS: 81003

== ENCOUNTER 2024-06-14 15:02 | Outpatient (REF) | payer MEDICARE, SELFPAY ==
[2024-06-14 15:49] LABS: VALPROIC ACID 64.4 ug/mL
[2024-06-14 15:52] LABS: ALT 18 U/L (16-63); AST 15 U/L (15-37); Albumin 3.2 g/dL (3.4-5.0); Alkaline Phosphatase 93 U/L (46-116); Bilirubin, Direct 0.1 mg/dL (0.0-0.2); Bilirubin, Total 0.3 mg/dL (0.2-1.0); Total Protein 6.6 g/dL (6.4-8.2)
[2024-06-14 16:10] LABS: Calculated LDL 76 mg/dL (<100); Cholesterol 157 mg/dL (<200); HDL Cholesterol 54 mg/dL (>or=40); Triglyceride 136 mg/dL (<150)
== END 2024-06-14 15:03 | disposition home or self-care (01) ==
LOC: NCHCN 15:02
PROVIDERS: PCP Nurse Practitioner Family; Visit Provider Nurse Practitioner Family
DX: F31.9 Bipolar disorder, unspecified (principal)
CPT/HCPCS: 80061; 80076; 80164

== ENCOUNTER 2024-08-21 10:33 | Outpatient (REF) | payer MEDICARE, SELFPAY ==
[2024-08-21 12:45] LABS: ALT 18 U/L (16-63); AST 13 U/L (15-37); Albumin 3.6 g/dL (3.4-5.0); Alkaline Phosphatase 91 U/L (46-116); Bilirubin, Direct 0.1 mg/dL (0.0-0.2); Bilirubin, Total 0.3 mg/dL (0.2-1.0); Calculated LDL 142 mg/dL (<100); Cholesterol 219 mg/dL (<200); HDL Cholesterol 48 mg/dL (>or=40); Total Protein 7.1 g/dL (6.4-8.2); Triglyceride 148 mg/dL (<150)
== END 2024-08-21 10:34 | disposition home or self-care (01) ==
LOC: NCHCN 10:33
PROVIDERS: PCP Nurse Practitioner Family; Visit Provider Nurse Practitioner Family
DX: F31.9 Bipolar disorder, unspecified (principal)
CPT/HCPCS: 80061; 80076; 80164

== ENCOUNTER 2024-11-15 11:50 | Outpatient (REF) | payer MEDICARE, SELFPAY ==
[2024-11-15 13:52] LABS: ALT 18 U/L (16-63); AST 18 U/L (15-37); Albumin 3.4 g/dL (3.4-5.0); Alkaline Phosphatase 80 U/L (46-116); Anion Gap 7.9 mmol/L (3-11); BUN 34 mg/dL (7-18); Bilirubin, Total 0.3 mg/dL (0.2-1.0); CO2 27.1 mmol/L (21.0-32.0); Calcium 9.1 mg/dL (8.5-10.1); Calculated LDL 79 mg/dL (<100); Chloride 106 mmol/L (98-107); Cholesterol 149 mg/dL (<200); Estimated GFR 31.43 (mL/min/1.73m2); Glucose 104 mg/dL (74-106); HDL Cholesterol 45 mg/dL (>or=40); Potassium 5.1 mmol/L (3.5-5.1); Sodium 141 mmol/L (136-145); Total Protein 6.8 g/dL (6.4-8.2); Triglyceride 129 mg/dL (<150)
== END 2024-11-15 11:51 | disposition home or self-care (01) ==
LOC: NCHCN 11:50
PROVIDERS: PCP Nurse Practitioner Family; Visit Provider Nurse Practitioner Family
DX: I25.10 Atherosclerotic heart disease of native coronary artery without angina pectoris (principal)
CPT/HCPCS: 80053; 80061

== ENCOUNTER 2024-12-05 15:43 | Outpatient (REF) | payer MEDICARE, SELFPAY ==
[2024-12-05 16:22] LABS: ALT 21 U/L (16-63); AST 12 U/L (15-37); Albumin 3.7 g/dL (3.4-5.0); Alkaline Phosphatase 87 U/L (46-116); Anion Gap 10.3 mmol/L (3-11); BUN 39 mg/dL (7-18); Bilirubin, Total 0.4 mg/dL (0.2-1.0); CO2 25.7 mmol/L (21.0-32.0); Calcium 9.6 mg/dL (8.5-10.1); Calculated LDL 78 mg/dL (<100); Chloride 103 mmol/L (98-107); Cholesterol 151 mg/dL (<200); Estimated GFR 31.43 (mL/min/1.73m2); Glucose 87 mg/dL (74-106); HDL Cholesterol 48 mg/dL (>or=40); Potassium 5.9 mmol/L (3.5-5.1); Sodium 139 mmol/L (136-145); Total Protein 7.5 g/dL (6.4-8.2); Triglyceride 127 mg/dL (<150)
[2024-12-05 21:44] LABS: PSA, Diagnostic 10.0 ng/mL (<=6.5)
== END 2024-12-05 15:44 | disposition home or self-care (01) ==
LOC: NCHCN 15:43
PROVIDERS: PCP Nurse Practitioner Family; Visit Provider Nurse Practitioner Family
DX: I25.10 Atherosclerotic heart disease of native coronary artery without angina pectoris (principal); I71.20 Thoracic aortic aneurysm, without rupture, unspecified; F31.9 Bipolar disorder, unspecified; N40.1 Benign prostatic hyperplasia with lower urinary tract symptoms
CPT/HCPCS: 80053; 80061; 80164; 84153

== ENCOUNTER → 2025-02-09 10:08 | Outpatient (BNVA) | payer MEDICARE, SELFPAY | PROVIDERS: PCP Nurse Practitioner Family; Visit Provider Registered Nurse | DX: I25.10 Atherosclerotic heart disease of native coronary artery without angina pectoris (principal); I10 Essential (primary) hypertension | CPT/HCPCS: 99214 ==